=== PATIENT | female | born 1930 | race American Indian/Alaskan Native ===

== ENCOUNTER 2018-03-15 03:57 | Emergency (ER) | payer MEDICARE ==
[2018-03-15 05:09] LABS: Basophils % (Auto) 0.3 % (0.0-1.8); Eosinophils % (Auto) 0.5 % (0.0-4.3); Hematocrit 38.3 % (30.3-42.9); Lymphocytes # (Auto) 1.4 K/mm3 (1.2-5.4); Mean Corpuscular HGB Conc 34 % (30-34); Mean Corpuscular Volume 91 fl (79-97); Monocytes # (Auto) 0.8 K/mm3 (0.0-0.8); Monocytes % (Auto) 11.2 % (0.0-7.3); Platelet Count 298 K/mm3 (140-440); Red Cell Distribution Width 15.8 % (13.2-15.2)
[2018-03-15 05:38] LABS: Bilirubin,Urine NEG (Negative); Blood,Urine SM (Negative); Color,Urine Yellow (Yellow); Mucus,Urine FEW /HPF; Protein,Urine <15 mg/dL mg/dL (Negative)
[2018-03-15 05:49] LABS: Alanine Aminotransferase 13 units/L (7-56); Albumin 4.5 g/dL (3.9-5); BUN/Creatinine Ratio 13; Blood Urea Nitrogen 8 mg/dL (7-17); Calcium 10.4 mg/dL (8.4-10.2); Hemolysis Index 1
--- NOTE | 2018-03-15 08:59 | Emergency Department Report ---
ED Abdominal Pain HPI - General Chief Complaint: Dyspnea/Respdistress Stated Complaint: LOWER ABD/BACK PAIN Time Seen by Provider: 03/15/18 08:38 Source: patient Mode of arrival: Ambulatory Limitations: No Limitations - History of Present Illness Initial Comments: Mrs. Shipman is a 88-year-old female with history of dementia, asthma, aortic aneurysm who presents with his daughter at bedside with abdominal pain. For several days she's had a nonproductive cough. However she's had lower abdominal pain radiating to the back. Daughter is concerned for constipation. However she's afraid to overdose her mother on stool softeners. She recently changed primary care physicians. She has been followed by physicians in the [facility] system. New PCP is Dr. aFbby Rodriguez. Daughter is primary caregiver for her mother. She lives in [facility]. She kindly requests a new primary physician in her neighborhood. History is limited to the patient's history of dementia. She states that she feels well. She denies any discomfort this time. -: Gradual, days(s) (1) Location: diffuse Radiation: back Severity: mild, moderate Quality: other (unable to determine) Consistency: intermittent, now resolved Associated Symptoms: denies other symptoms - Related Data Home Medications Medication Instructions Recorded Confirmed Last Taken Donepezil [Aricept] 5 mg PO QDAY 03/15/18 03/15/18 Unknown Fluticasone/Salmeterol [Advair 1 dispenser INHALATION DAILY PRN 03/15/18 03/15/18 Unknown 100-50 Diskus] Memantine HCl [Namenda] 5 mg PO DAILY 03/15/18 03/15/18 Unknown Metoprolol [Lopressor] 25 mg PO BID 03/15/18 03/15/18 Unknown Montelukast [Singulair] 10 mg PO DAILY 03/15/18 03/15/18 Unknown Allergies Allergy/AdvReac Type Severity Reaction Status Date / Time No Known Allergies Allergy Verified 03/15/18 04:25 ED Review of Systems ROS: Stated complaint: LOWER ABD/BACK PAIN Other details as noted in HPI Comment: Unobtainable due to pts medical conditions (history of dementia) ED Past Medical Hx - Past Medical History Previous Medical History?: Yes Hx Asthma: Yes Hx Dementia: Yes (unsure) Additional medical history: arotic aneursim - Surgical History Past Surgical History?: Yes Additional Surgical History: pituarty gland growth removed - Social History Smoking Status: Never Smoker Substance Use Type: Alcohol - Medications Home Medications: Home Medications Medication Instructions Recorded Confirmed Last Taken Type Donepezil [Aricept] 5 mg PO QDAY 03/15/18 03/15/18 Unknown History Fluticasone/Salmeterol [Advair 1 dispenser INHALATION DAILY PRN 03/15/18 03/15/18 Unknown History 100-50 Diskus] Memantine HCl [Namenda] 5 mg PO DAILY 03/15/18 03/15/18 Unknown History Metoprolol [Lopressor] 25 mg PO BID 03/15/18 03/15/18 Unknown History Montelukast [Singulair] 10 mg PO DAILY 03/15/18 03/15/18 Unknown History ED Physical Exam - General Limitations: No Limitations General appearance: alert, in no apparent distress, other (eating a snack, appears comfortable) - Head Head exam: Present: atraumatic, normocephalic - Eye Eye exam: Present: normal appearance - ENT ENT exam: Present: mucous membranes moist - Neck Neck exam: Present: normal inspection, full ROM, other (pulsatile mass right trapezius) - Respiratory Respiratory exam: Present: normal lung sounds bilaterally. Absent: respiratory distress, wheezes, rales - Cardiovascular Cardiovascular Exam: Present: regular rate, normal rhythm, normal heart sounds - GI/Abdominal GI/Abdominal exam: Present: soft. Absent: distended, tenderness, guarding, rebound - Extremities Exam Extremities exam: Present: normal inspection - Back Exam Back exam: Present: normal inspection - Neurological Exam Neurological exam: Present: alert, other (oriented to name) - Psychiatric Psychiatric exam: Present: normal affect, normal mood - Skin Skin exam: Present: warm, dry, intact, normal color. Absent: rash ED Course Vital Signs 03/15/18 03/15/18 03/15/18 04:02 04:16 05:46 Temperature 98.7 F 98.7 F Pulse Rate 84 86 Respiratory 18 18 Rate Blood Pressure 121/85 121/85 O2 Sat by Pulse 98 99 89 Oximetry 03/15/18 03/15/18 03/15/18 05:49 06:00 06:16 Temperature Pulse Rate Respiratory 18 Rate Blood Pressure 131/78 123/75 O2 Sat by Pulse 97 98 99 Oximetry 03/15/18 03/15/18 03/15/18 06:30 06:45 07:00 Temperature Pulse Rate Respiratory Rate Blood Pressure 115/72 141/80 141/74 O2 Sat by Pulse 98 99 100 Oximetry 03/15/18 03/15/18 03/15/18 07:15 07:30 07:45 Temperature Pulse Rate Respiratory Rate Blood Pressure 133/71 133/71 138/75 O2 Sat by Pulse 99 98 99 Oximetry 03/15/18 03/15/18 03/15/18 08:00 08:15 08:30 Temperature Pulse Rate Respiratory Rate Blood Pressure 138/75 145/73 160/67 O2 Sat by Pulse 97 98 100 Oximetry 03/15/18 03/15/18 03/15/18 08:46 09:00 09:15 Temperature Pulse Rate Respiratory Rate Blood Pressure 145/73 137/119 128/73 O2 Sat by Pulse 96 97 97 Oximetry 03/15/18 03/15/18 03/15/18 09:42 09:46 10:00 Temperature Pulse Rate Respiratory Rate Blood Pressure 128/73 128/73 128/73 O2 Sat by Pulse 97 100 98 Oximetry ED Medical Decision Making - Lab Data Result diagrams: 03/15/18 04:50 03/15/18 04:50 Laboratory Results - last 24 hr 03/15/18 03/15/18 03/15/18 04:50 04:50 05:03 WBC 7.5 RBC 4.20 Hgb 13.0 Hct 38.3 MCV 91 MCH 31 MCHC 34 RDW 15.8 H Plt Count 298 Lymph % (Auto) 18.0 [place] % (Auto) 11.2 H Eos % (Auto) 0.5 Baso % (Auto) 0.3 Lymph # 1.4 [place] # 0.8 Eos # 0.0 Baso # 0.0 Seg Neutrophils % 70.0 Seg Neutrophils # 5.3 Sodium 142 Potassium 4.2 Chloride 102.7 Carbon Dioxide 28 Anion Gap 16 BUN 8 Creatinine 0.6 L Estimated GFR > 60 BUN/Creatinine Ratio 13 Glucose 95 Calcium 10.4 H Total Bilirubin 1.00 AST 16 ALT 13 Alkaline Phosphatase 50 Total Protein 6.7 Albumin 4.5 Albumin/Globulin Ratio 2.0 Urine Color Yellow Urine Turbidity Clear Urine pH 5.0 Ur Specific [place] 1.010 Urine Protein <15 mg/dl Urine Glucose (UA) Neg Urine Ketones Neg Urine Blood Sm Urine Nitrite Neg Urine Bilirubin Neg Urine Urobilinogen 2.0 Ur Leukocyte Esterase Tr Urine WBC (Auto) 1.0 Urine RBC (Auto) 2.0 U Epithel Cells (Auto) < 1.0 Urine Mucus Few - Radiology Data Radiology results: report reviewed 3 cm uterine fibroid, no aneurysm of the aorta no acute process on CT abdomen and pelvis - Medical Decision Making 1. abdominal pain presumably due to constipation, I encouraged her to continue stool softeners. CT abdomen and pelvis without acute process 2. cough no evident cough on exam. Possible early viral syndrome or mild aspiration. Supportive therapy 3. pulsatile mass right neck/chest region, has been present from some time according to daughter, considering patient's age and co-morbidites, I encouraged daughter to just observe. I recommended avoidance of aggressive medical intervention. I have also provided several referrals to outpatient physicians. Also provided referral to neurologist for treatment of dementia Critical care attestation.: If time is entered above; I have spent that time in minutes in the direct care of this critically ill patient, excluding procedure time. ED Disposition Clinical Impression: Abdominal pain Disposition: DC-01 TO HOME OR SELFCARE Is pt being admited?: No Does the pt Need Aspirin: No Condition: Stable Instructions: Acute Abdominal Pain (ED) Referrals: NICOL NORTH MD [Primary Care Provider] - 3-5 Days ALLISON AVINA MD [Staff Physician] - 3-5 Days ALYSIA MCKEON MD [Staff Physician] - 3-5 Days MIRYAM GAONA MD [Referring] - 3-5 Days
--- NOTE | 2018-03-15 09:51 | Cat Scan Report ---
CT ABDOMEN PELVIS WITH CONTRAST: HISTORY: abdominal pain. COMPARISON: none. TECHNIQUE: Helical CT in 1.25mm intervals following IV contrast. Sagittal and coronal reconstructions. FINDINGS: Comment: There is moderate motion artifact on this exam. Lung bases: Normal. Liver: Normal. Biliary system: Cholecystectomy. There is mild prominence of the pancreaticobiliary tree which could be secondary to cholecystectomy. No obvious obstructing lesion or inflammatory changes. Pancreas: Unremarkable. Spleen: Normal. Kidneys/ureters/bladder: Normal. Adrenal glands: Normal. Aorta: Mild diffuse calcifications. No stenosis or aneurysm. Intestines: Within normal limits given no oral contrast was administered. Mild diverticulosis of the distal colon is noted. No obvious inflammatory changes. Appendix: Not confidently identified. Pelvic viscera: A 3 cm fibroid is suspected at the uterine fundus. The ovaries are unremarkable. Ascites: None. Adenopathy: None. Musculoskeletal: Moderate thoracolumbar spondylosis.. IMPRESSION: No acute inflammatory process is identified.
[2018-03-15 10:13] VITALS: BP 128/73
== END 2018-03-15 11:10 | disposition home or self-care (01) ==
LOC: ED 03:57
DX: R10.30 Lower abdominal pain, unspecified (principal); R05 Cough; K59.00 Constipation, unspecified; J45.909 Unspecified asthma, uncomplicated; F03.90 Unspecified dementia, unspecified severity, without behavioral disturbance, psychotic disturbance, mood disturbance, and anxiety
CPT/HCPCS: 36415; 74177; 80053; 81001; 85025; 93005; 93010; 99284; Q9967

== ENCOUNTER 2019-01-24 13:03 | Outpatient (CLI) | payer MEDICARE ==
--- NOTE | 2019-01-25 11:47 | Mammography Report ---
BONE DEXA. History: Postmenopausal. Procedure: 3 site bone densitometry performed on a Hologic scanner. Comparison: None Findings: The BMD of the lumbar spine (L1-L3) is 0.833 gm/cm2 with a T-score of -1.7 and a Z-score of +0.5 . The bone mineral density (BMD) of the left femoral neck is 0.648 gm/cm2 with a T-score of -1.8 and a Z-score of -0.2. The BMD of the total left hip is 0.713 gm/cm2 with a T-score of -1.9 and a Z-score of -0.3. Impression: WHO Classification: Osteopenia with increased fracture risk based on lumbar spine measurements. WHO classification: Osteopenia with increased fracture risk based on left hip measurements. The FRAX 10 year fracture probability for a major osteoporotic fracture is 5.9%. The FRAX 10 year fracture probability for hip fracture is 1.7%. . Note:FRAX version 3.01. Fracture probability calculated for an untreated patient. Fracture probabilit y may be lower if the patient has received treatment. RECOMMENDATION: Clinical correlation and routine screening. Definitions: BMD = Bone Mineral Density T score = BMD related to mean peak bone mass of young adult ([place] expressed an standard deviation) Z score = Age-matched BMD expressed in SD World health organization (WHO) diagnostic criteria: Normal: T score greater than -1 SD. Osteopenia: T score between - SD and -2.4 SD. Osteoporosis: T score -2.5 SD or below Note: BMD is not the only risk factor for fracture; also consider factors such as the patient's age, risk of falling, previous osteoporotic fracture, family history of osteoporotic fractures, smoking st atus and low body weight. All treatment decisions require clinical judgment and consideration of individual patient factors inc luding patient preferences, comorbidities, previous drug use and risk factors not captured in the FRA X model (e.g. Frailty, falls, vitamin D deficiency, increased bone turnover, interval significant dec line in BMD). A more detailed DEXA Bone Densitometry report is available upon request. Signer Name: Kayden Guo MD Signed: 01/25/2019 11:43 AM Workstation Name: [id number]
== END 2019-01-24 13:04 | disposition home or self-care (01) ==
LOC: MAMMO 13:03
PROVIDERS: ATTEND Family Medicine
DX: M81.0 Age-related osteoporosis without current pathological fracture (principal)
CPT/HCPCS: 77080